=== PATIENT | male | born 1995 | race Caucasian/White ===

== ENCOUNTER 2020-02-13 20:02 | Emergency (ER) | payer BC ==
--- NOTE | 2020-02-13 21:00 | ER Document Report ---
ED Medical Screen (RME) - General Chief Complaint: Depression Stated Complaint: DEPRESSION Time Seen by Provider: 02/13/20 20:53 Mode of Arrival: Ambulatory Information source: Patient Notes: 24-year-old male presented to ED for complaint of increasing depression. He states [place] [facility] [place] He states they do his medications. He states he would like to be voluntary state until he can talk to the psych people in the morning to try to get into [facility]. He states he has been thinking about cutting himself but has not thought of suicide. He states he does smoke 2 to 3 cigarettes a day but does not drink or do any drugs. He states that the doctor did change his medicine about a week ago. I have greeted and performed a rapid initial assessment of this patient. A comprehensive ED assessment and evaluation of the patient, analysis of test results and completion of medical decision making process will be conducted by an additional ED providers.
[2020-02-13 21:42] LABS: ABSOLUTE BASOPHILS # (AUTO) 0.1 10^3/uL (0.0-0.2); ABSOLUTE EOSINOPHILS # (AUTO) 0.6 10^3/uL (0.0-0.6); ABSOLUTE MONOCYTES (AUTO) 0.9 10^3/uL (0.1-1.4); ABSOLUTE NEUT (AUTO) 7.4 10^3/uL (1.7-8.2); BASOPHILS % (AUTO) 0.4 % (0-2); RED BLOOD COUNT 6.37 10^6/uL (4.35-5.55); TOTAL CELLS COUNTED % (AUTO) 100 %
[2020-02-13 21:47] LABS: APPEARANCE,URINE CLEAR; BILIRUBIN,URINE NEGATIVE (NEGATIVE); COLOR,URINE YELLOW; GLUCOSE, URINE NEGATIVE (NEGATIVE); KETONES,URINE NEGATIVE (NEGATIVE); LEUKOCYTE ESTERASE,URINE NEGATIVE (NEGATIVE); NITRITE,URINE NEGATIVE (NEGATIVE); PROTEIN,URINE NEGATIVE (NEGATIVE); UROBILINOGEN,URINE NEGATIVE mg/dL (<2.0)
[2020-02-13 21:57] LABS: ABSOLUTE LYMPHOCYTES (AUTO) 4.6 10^3/uL (0.5-4.7); EOSINOPHILS % (AUTO) 4.5 % (0-6); HEMOGLOBIN 18.8 g/dL (13.5-17.0); MEAN CORPUSCULAR HEMOGLOBIN 29.5 pg (27.0-33.4); MEAN CORPUSCULAR HGB CONC 33.8 g/dL (32.0-36.0); MEAN CORPUSCULAR VOLUME 87 fl (80-97); MONOCYTES % (AUTO) 6.5 % (3-13); PLATELET COUNT 211 10^3/uL (150-450); RED CELL DISTRIBUTION WIDTH 14.5 % (11.5-14.0); SEGMENTED NEUTROPHILS % (AUTO) 54.6 % (42-78); WHITE BLOOD COUNT 13.5 10^3/uL (4.0-10.5)
[2020-02-13 21:58] LABS: HEMATOCRIT 55.6 % (37.9-51.0)
[2020-02-13 22:00] LABS: ALBUMIN 5.2 g/dL (3.5-5.0); ALKALINE PHOSPHATASE 81 U/L (38-126); ANION GAP 8 (5-19); ASPARTATE AMINO TRANSFERASE 29 U/L (17-59); BILIRUBIN,TOTAL 0.8 mg/dL (0.2-1.3); BLOOD UREA NITROGEN 11 mg/dL (7-20); CALCIUM 9.5 mg/dL (8.4-10.2); CARBON DIOXIDE 29 mmol/L (22-30); CHLORIDE 103 mmol/L (98-107); GLUCOSE 103 mg/dL (75-110); POTASSIUM 4.4 mmol/L (3.6-5.0); TOTAL PROTEIN 8.4 g/dL (6.3-8.2)
[2020-02-13 22:05] LABS: ACETAMINOPHEN < 10 ug/mL (10-30); ALCOHOL < 10 mg/dL (NONE DETECTED); SALICYLATE < 1.0 mg/dL (2.0-20.0); URINE AMPHETAMINES SCREEN NEGATIVE; URINE BARBITURATES SCREEN NEGATIVE; URINE BENZODIAZEPINES SCREEN NEGATIVE; URINE COCAINE SCREEN NEGATIVE; URINE METHADONE SCREEN NEGATIVE; URINE PHENCYCLIDINE SCREEN NEGATIVE
[2020-02-13 22:06] LABS: URINE MARIJUANA (THC) SCREEN UNCONFIRMED POSITIVE
--- NOTE | 2020-02-14 01:42 | ER Document Report ---
ED General - General Chief Complaint: Depression Stated Complaint: DEPRESSION Time Seen by Provider: 02/13/20 20:53 Mode of Arrival: Ambulatory Notes: This 24-year-old male presenting to the urgency department with a complaint of depression and feeling pressured by life circumstances. He is having a difficult time finding a job, strained relationships and has become more depressed. He has outpatient psychiatric follow-up, he is on medications for depression. Lately however he has been thinking about cutting himself. He is not suicidal and has no desire to harm himself, however is here to see if he can get medication changes so that he can decrease the depression symptoms. He denies alcohol or substance abuse with illicit drugs. - Related Data Allergies/Adverse Reactions: No Known Allergies Allergy (Unverified 02/13/20 22:40) Past Medical History - General Information source: Patient - Social History Smoking Status: Current Every Day Smoker Frequency of alcohol use: None Drug Abuse: None Family History: Reviewed & Not Pertinent Patient has homicidal ideation: No Review of Systems - Review of Systems Notes: Constitutional: Negative for fever. HENT: Negative for sore throat. Eyes: Negative for visual changes. Cardiovascular: Negative for chest pain. Respiratory: Negative for shortness of breath. Gastrointestinal: Negative for abdominal pain, vomiting or diarrhea. Genitourinary: Negative for dysuria. Musculoskeletal: Negative for back pain. Skin: Negative for rash. Neurological: Negative for headaches, weakness or numbness. 10 point ROS negative except as marked above and in HPI. Physical Exam - Notes Notes: PHYSICAL EXAMINATION: Physical Exam: General: Well-nourished well-developed operative and pleasant 24-year-old man in no acute distress HEENT: NC/AT, pupils equal round and reactive to light, MM moist,nares clear, oropharynx clear, airway patent Neck: supple, no adenopathy, no masses. Good range of motion Lungs: clear, no wheezing, no rales no rhonchi CVS: Regular rate and rhythm no murmur gallop or rub Abdomen: Soft, active, nontender, no masses, no hepatosplenomegaly Ext: No edema, clubbing or cyanosis. Neuro: Alert and responsive, moving all 4 extremities on command, cranial nerves intact, no focal findings Skin: Intact no open lesions, no rash PSYCH: Normal mood, normal affect, denies suicidal or homicidal ideation, no auditory or visual hallucinations. Course - Re-evaluation Re-evalutation: 02/14/20 01:40 Patient presents for depression and feeling the urge to cut himself. He is voluntary, requesting to be seen for possible medication adjustment. Patient has no ongoing active medical problems and is medically stable. - Laboratory Result Diagrams: 02/13/20 21:27 02/13/20 21:27 Laboratory results interpreted by me: 02/13/20 02/13/20 21:27 21:27 WBC 13.5 H RBC 6.37 H Hgb 18.8 H Hct 55.6 H RDW 14.5 H Total Protein 8.4 H Albumin 5.2 H Salicylates < 1.0 L Acetaminophen < 10 L 02/14/20 01:41 I have reviewed laboratory data and used this information for the treatment decisions regarding the patient. - EKG Interpretation by Me EKG shows normal: Sinus rhythm, [place] - Normal, Intervals - Normal, QRS Complexes - Normal, ST-T Waves - No acute ST or T wave abnormalities, no ischemic changes seen. Rate: Normal - Rate is 84 Discharge - Discharge Clinical Impression: Depression Qualifiers: Depression Type: other depression Qualified Code(s): F32.89 - Other specified depressive episodes Condition: Good Disposition: HOME, SELF-CARE
--- NOTE | 2020-02-14 10:44 | PSYCHOLOGICAL NOTE ---
Psych Note - Psych Note Date seen by psych provider: 02/14/20 Time seen by psych provider: 10:10 Psych Note: Reason for Consult: Thoughts of self harm Upon entering the room, patient smiles and engages openly with clinician. Patient reports increased symptoms of depression and thoughts of engaging in self harm (cutting). he has not engaged in cutting for 3 years; he denies acting on thoughts last night. Patient reports being dropped from school because of COVID and now has lost his job. He reports situational stressors have increased and when he started having thoughts of self harm he thought; "I better go in." Patient is hoping for medication adjustments to assist with increase symptoms. He has an outpatient mental health provider with [facility]. He confirms he would like assistance in getting an "emergency" medication appointment with [facility] Clinician contacted [facility] in an effort to assist patient in obtaining same-day appointment. [facility] confirms they can see the patient at 4:30 PM today. They remind patient that it is virtual and he will receive an email 30 minutes prior to his appointment with instructions on how to attend his appointment. They reports the patient has attended virtual appointments previously so should not have much difficulty. Patient is alert and orientated to person, place, time and circumstance. Mood is euthymic with congruent affect as evidenced by smiling laughing engaging with clinician. Patient adamantly denies suicidal and homicidal ideation. Patient reports increase in thoughts of self-harm however has not engaged. Delusions are absent behaviors congruent with an intact reality based presentation i.e. organized and linear thought process. Eye contact was well maintained. Conversational speech is within normal rate, tone and prosody. Intellectual abilities appear to be within the average range. Attention and concentration are good. Insight, judgment, impulse control are good as evidenced by patient noting increase in social stressors correlating with increase in mental health symptoms and coming in for assistance prior to engaging in any thoughts. Impression\\plan: Patient is cleared from acute psychiatric services. Patient presented voluntarily to [facility] ED in an effort to obtain medication adjustments due to his increased mental health symptoms i.e. thoughts of engaging in self- harm cutting. Patient has not engaged in these behaviors for the last 3 years and denies engaging last night. Patient reports of return of these thoughts prompted him to coming in for help. Patient does have an outpatient mental health provider with [facility] and confirms he would appreciate assistance in obtaining same-day appointment to address his medication concerns. Clinician was able to secure a same-day appointment for 1630 this afternoon with [facility]. Dr. Mello was consulted to care management of this patient; tending physicians in agreement with recommendations and disposition.
[2020-02-14 12:16] VITALS: BP 127/75
--- NOTE | 2020-02-14 14:59 | EKG REPORT ---
SEVERITY:- NORMAL ECG - SINUS RHYTHM : Confirmed by: Zach Ryan MD 14-Feb-2020 14:58:48
== END 2020-02-14 12:12 | disposition home or self-care (01) ==
LOC: ER 20:02
DX: F32.9 Major depressive disorder, single episode, unspecified (principal); Z79.899 Other long term (current) drug therapy; Z56.0 Unemployment, unspecified; F17.200 Nicotine dependence, unspecified, uncomplicated
CPT/HCPCS: 36415; 80053; 80307; 81001; 85025; 93005; 93010; 99284